=== PATIENT | female | born 1980 | race Caucasian/White ===

== ENCOUNTER 2023-06-24 08:40 | Emergency (ER) | payer MEDICAID, OTHER ==
[~2023-06-24] VITALS: Ht 157.5 cm; Wt 70.0 kg
[2023-06-24 08:48] VITALS: O2SAT 100
[2023-06-24 09:35] LABS: CLARITY URINE CLOUDY (CLEAR); COLOR URINE YELLOW (YELLOW); GLUCOSE URINE NEGATIVE (NEGATIVE); KETONES URINE 1+ (NEGATIVE); LEUKOCYTE ESTERASE URINE 3+ (NEGATIVE); NITRITE URINE NEGATIVE (NEGATIVE); OCCULT BLOOD URINE 2+ (NEGATIVE); PROTEIN URINE 2+ (NEGATIVE); SPECIFIC GRAVITY URINE 1.011 (1.005-1.030)
[2023-06-24 09:52] LABS: BASOPHILS % 0.3 % (0.0-2.0); EOSINOPHILS % 2.8 % (0.0-5.0); HEMATOCRIT. 41.5 % (36.0-48.0); HEMOGLOBIN. 14.1 g/dL (12.0-16.0); LYMPHOCYTES % 17.2 % (20.0-50.0); MEAN CORPUSCULAR HEMOGLOBIN 31.2 pg (28.0-32.0); MEAN CORPUSCULAR HGB CONC 33.9 g/dL (31.0-37.0); MEAN PLATELET VOLUME 10.4 fl (7.4-10.4); MONOCYTES % 6.6 % (2.0-8.0); NEUTROPHILS % 73.1 % (40.0-76.0); PLATELET 220 x1000/uL (130-400); RED BLOOD CELL COUNT 4.51 mill/uL (4.2-5.4); RED CELL DISTRIBUTION WIDTH 13.9 % (11.6-14.6); WHITE BLOOD COUNT 5.8 x1000/uL (4.5-11.0)
[2023-06-24 10:10] LABS: SQUAMOUS EPITHELIAL CELL URINE RARE /lpf (RARE/1+)
[2023-06-24 10:11] LABS: BACTERIA URINE 2+; WBC URINE TNTC /hpf (0-2)
[2023-06-24 10:16] LABS: HCG SCREEN NEGATIVE
[2023-06-24 10:41] LABS: SODIUM 140 mEq/L (136-145)
[2023-06-24 10:42] LABS: ALBUMIN 4.2 g/dL (3.2-4.8); CALCIUM 9.1 mg/dL (8.7-10.4); CHLORIDE 107 mEq/L (98-107); CREATININE 0.5 mg/dL (0.6-1.0); GLUCOSE 91 mg/dL (70-105); POTASSIUM 4.2 mEq/L (3.5-5.1); PROTEIN TOTAL 7.2 g/dL (6.0-8.3); UREA NITROGEN BLOOD < 5 mg/dL (9-23)
[2023-06-24 10:43] LABS: ALANINE AMINOTRANSFERASE 7 IU/L (10-49); ASPARTATE AMINOTRANSFERASE 17 IU/L (<34); BILIRUBIN TOTAL 0.5 mg/dL (0.1-1.0)
[2023-06-24 10:52] LABS: CARBON DIOXIDE 24 mEq/L (21-32)
[2023-06-24] MEDS ORDERED: SULF1TAB48 MT (11:24)
[2023-06-24] MEDS ORDERED: PHEN-815 MT (11:24)
[2023-06-24 11:52] VITALS: BP 134/62; PULSE 71; RESP 18; TEMP 98.2
== END 2023-06-24 11:55 | disposition home or self-care (01) ==
LOC: ER 08:40
DX: N39.0 Urinary tract infection, site not specified (principal); Z98.890 Other specified postprocedural states
CPT/HCPCS: 36415; 80053; 81003; 81025; 84703; 85025; 87077; 87186; 99283